=== PATIENT | male | born 1965 | race Caucasian/White ===

== ENCOUNTER 2017-03-18 14:29 | Emergency (ER) | payer OTHER ==
[~2017-03-18] VITALS: Ht 177.8 cm; Wt 70.5 kg
[2017-03-18 14:41] VITALS: BP 102/55; PULSE 107; RESP 25; O2SAT 94
[2017-03-18 15:10] LABS: BASOPHILS % (AUTO) 1.2 % (0-3); EOSINOPHILS % (AUTO) 2.2 % (0-5); MONOCYTES % (AUTO) 8.2 % (4-12); Mean Corpuscular Hemoglobin 33.3 pg (27.0-35.0); NEUTROPHILS % (AUTO) 73.7 % (40-74); Platelet Count 328 bil/L (150-400)
[2017-03-18 15:18] VITALS: BP 96/44; PULSE 95; RESP 25; O2SAT 94
--- NOTE | 2017-03-18 15:36 | ED.REPORT ---
HPI-General Illness Date of Service Mar 18, 2017 ED Provider: Rodri Toney MD Patient is a 52 year old male with a hx of Epilepsy, COPD, and EtOH abuse who presents to the ED via EMS s/p having 2 EMS witnessed tonic clonic seizures. [place] [facility] [place] and [place] and discharged with medications sent to [place]. He was unable to get a ride to [place] to get his medication. He was given 5mg of Versed. Patient also has a small laceration on his L arm onset earlier today. He is amnestic to his arrival at the hospital and does not know why he is here. His only complaint is headache. He denies neck pain, chest pain, SOB, abdominal pain, nausea, vomiting, fever, or any other symptoms. He is supposed to take 25 mg of Keppra a day but has not taken it since this morning [place] [facility] [place] He reports he had a CT Head scan this morning [place] [facility] [place] He denies drinking since his release [place] [facility] [place]. Nursing Notes Stated Complaint: INTOXICATION, SEIZURE, ARM STABBING Chief Complaint: Seizure Nursing Notes Reviewed: Yes Allergies: Coded Allergies: No Known Allergies (Unverified , 03/18/17) General Time Seen by MD: 15:22 Chief Complaint Seizure Hx Obtained From: Patient Arrived By: Ambulance Sudden in Onset?: Yes Onset Occurred: Just prior to arrival Severity: Current: No pain currently Severity: Maximum: No pain Pertinent Negative: Pt denies other symptoms Context Related History: Reports COPD, Reports Seizure disorder Recent Healthcare: Recent doctor visit, Recent testing, Prior workup Similar Sx Previous: Yes Past Medical History Past Medical History EtOH abuse PTSD Reports: COPD Reports: Seizure disorder Past Surgical History Facial surgery Smoking History Unknown if Ever Smoker Social History EtOH abuse - amount unspecified. Other Social History: Homeless Ambulatory Status Independent Review of Systems +laceration on L forearm Full Review of Systems Constitutional: Denies: Fever Respiratory: Denies: Shortness of breath Cardiovascular: Denies: Chest pain GI: Denies: Abdominal pain, Nausea, Vomiting Musculoskeletal: Denies: Neck pain Neurologic: Reports: Confusion, Headache, Seizure Complete sys rev & neg: except as marked. Physical Exam Nursing note and vitals reviewed. Constitutional: Well-developed, well-nourished. Not diaphoretic. Head: Normocephalic and atraumatic. Mouth/Throat: Oropharynx is clear and moist. No oropharyngeal exudate. Eyes: EOM are normal. Pupils are equal, round, and reactive to light. Neck: Supple, no tracheal deviation. No C-spine tenderness. Back: No L or T-spine tenderness Cardiovascular: Tachycardic. Equal and intact distal pulses throughout. Pulmonary/Chest: Effort normal and breath sounds normal. No respiratory distress. Abdominal: Soft. No distension. There is no tenderness, rebound, or guarding. Bowel sounds present. Musculoskeletal: Range of motion grossly intact, moving all extremities. No edema or tenderness appreciated. Neurological: AOx3. Grossly nonfocal exam. Strength and sensation intact and equal to bilateral upper and lower extremities. Skin: Warm and dry, no rashes or pallor appreciated. 5 cm superficial laceration to the L forearm, well approximated. Psychiatric: Appropriate mood and affect. Behavior appears normal. Vital Signs Vital Signs Date Time Temp Pulse Resp B/P Pulse Ox O2 Delivery O2 Flow Rate FiO2 03/18/17 15:18 95 25 96/44 94 Nasal Cannula 2 03/18/17 14:41 36.3 107 25 102/55 94 Nasal Cannula 2 Interpretation & Diagnostics Lab Results Interpretation Result Diagram: 03/18/17 1503 03/18/17 1535 Test 03/18/17 15:03 03/18/17 15:35 White Blood Count 13.8th/mm3 (3.8-10.1) Red Blood Count 4.42mil/mm3 (4.40-5.80) Hemoglobin 14.7g/dL (13.8-17.2) Hematocrit 42.0% (41.0-50.0) Mean Corpuscular Volume 95.0fL (81-100) Mean Corpuscular Hemoglobin 33.3pg (27.0-35.0) Mean Corpuscular Hemoglobin Concent 35.0% (32.0-37.0) Red Cell Distribution Width 13.6% (12.3-15.4) Platelet Count 328bil/L (150-400) Neutrophils (%) (Auto) 73.7% (40-74) Lymphocytes (%) (Auto) 14.5% (14-46) Monocytes (%) (Auto) 8.2% (4-12) Eosinophils (%) (Auto) 2.2% (0-5) Basophils (%) (Auto) 1.2% (0-3) Sodium Level 142mEq/L (134-144) Potassium Level 4.0mEq/L (3.5-5.2) Chloride Level 106mEq/L (97-108) Carbon Dioxide Level 21mmol/L (18-29) Blood Urea Nitrogen 9mg/dL (6-24) Creatinine 0.66mg/dL (0.76-1.27) Estimat Glomerular Filtration Rate 135mL/min (>59) Glucose Level 106mg/dL (60-99) Lactic Acid Level 1.5mmol/L (0.4-2.0) Calcium Level 8.1mg/dL (8.5-10.1) Magnesium Level 1.9mg/dL (1.6-2.6) Total Bilirubin 0.3mg/dL (0.0-1.2) Aspartate Amino Transf (AST/SGOT) 30U/L (0-50) Alanine Aminotransferase (ALT/SGPT) 23U/L (0-44) Alkaline Phosphatase 74U/L (25-150) Total Protein 6.3g/dL (6.4-8.4) Albumin 3.6g/dL (3.4-5.0) Hold [place] Top Tube Received (Received) Alcohols 264mg/dL (0-10) CT Head Interpretation IMPRESSION: No acute intracranial abnormalities. Dictated by: Efrain Caputo M.D. on 03/18/2017 at 16:44 Approved by: Efrain Caputo M.D. on 03/18/2017 at 16:48 Study: Head CT no contrast Interpretation / Wet Read by: Interpret - Radiologist Re-Eval/Medical Decision Med Decision/Clinical Course wbc 13.8 creatinine 0.66 Calcium 8.1 Total protein 6.3 alc 264 Time of Eval: 17:22 Re-Evaluation/Progress Note: Patient was walking out the door with clothes on and said he wanted to leave. He was ambulatory with steady gait. Neurological exam nL. He says he is feeling at his baseline. Discussed risks of leaving AMA including , further seizure, and aspiration. Patient clearly understood and wanted to leave. Encouraged patient to return if he changes his mind. Counseled Regarding: Diagnosis, Lab results, Need for follow-up, When/why to return to ED Discharge & Departure Primary Impression: Seizure Additional Impression: Alcohol abuse Disposition: AGAINST MEDICAL ADVICE (Eloped ) Discharge Condition All VS Reviewed: Yes Condition: Stable Scribe Attestation Portions of this note were transcribed by Shayna Colon. I, Dr. Toney personally performed the history, physical exam and medical decision-making; I reviewed and confirmed the accuracy of the information in the transcribed note. Signed by: Shayna Colon 03/18/17, 1726 Rodri Toney MD Mar 18, 2017 15:36 SHAYNA COLON Mar 18, 2017 16:16
[2017-03-18 16:08] LABS: Magnesium 1.9 mg/dL (1.6-2.6)
[2017-03-18] MEDS ORDERED: 0.9% Sodium Chloride 1,000 ML IV ONE (16:15)
[2017-03-18] MEDS ORDERED: TdaP Vaccine 0.5 mL Inj IM ONE (16:20)
--- NOTE | 2017-03-18 16:50 | DRSVH ---
PROCEDURE: CT BRAIN WITHOUT CONTRAST ([id number]) INDICATIONS: 52 year-old female with seizures and altered mental status. TECHNIQUE: Noncontrast 4.5 mm thick angled axial sections acquired from the foramen magnum to the vertex, with c oronal reformats. COMPARISON: None. FINDINGS: Image quality: Excellent. CSF spaces: Basal cisterns are patent. No extra-axial fluid collections. Ventricles are normal in size and shape. Brain: No midline shift. No intracranial masses or hemorrhage. Betancourt-white matter interface is norm al. Skull and face: Calvarium and visualized facial bones are intact, without suspicious lesions. Sinuses: Visualized sinuses and mastoids are clear. IMPRESSION: No acute intracranial abnormalities. Dictated by: Efrain Caputo M.D. on 03/18/2017 at 16:44 Approved by: Efrain Caputo M.D. on 03/18/2017 at 16:48
[2017-03-19] MEDS ORDERED: LEVE500T3 PO (01:59)
== END 2017-03-18 17:29 | disposition left against medical advice (07) ==
LOC: EDBD 14:29 → SED 14:29
DX: G40.909 Epilepsy, unspecified, not intractable, without status epilepticus (principal); F10.10 Alcohol abuse, uncomplicated; J44.9 Chronic obstructive pulmonary disease, unspecified; Z59.0 Homelessness; Z53.29 Procedure and treatment not carried out because of patient's decision for other reasons
CPT/HCPCS: 36415; 70450; 80053; 80299; 83605; 83735; 85025; 96360; 96361; 99285; G0480; J7030

== ENCOUNTER 2017-03-19 00:47 | Emergency (ER) | payer OTHER ==
[~2017-03-19] VITALS: Ht 170.2 cm; Wt 61.4 kg
[2017-03-19 00:49] VITALS: BP 135/89; PULSE 116; RESP 24; O2SAT 95
--- NOTE | 2017-03-19 01:42 | ED.REPORT ---
HPI-General Illness Date of Service Mar 19, 2017 ED Provider: Stephane Spencer MD A 52 year old male with a history of COPD, seizure disorder and alcohol abuse is brought to the ED with a medication request. The pt is requesting Keppra, stating that he has not had any in four days. He has been seen twice today at [facility] for alcohol intoxication and seizures, but denies current seizure activity. He last drank earlier today. Nursing Notes Stated Complaint: ETOH Chief Complaint: Substance Abuse Nursing Notes Reviewed: Yes Allergies: Coded Allergies: No Known Allergies (Unverified , 03/19/17) Scheduled Levetiracetam (Levetiracetam) 500 Mg Tablet 1,000 MG PO BID General Time Seen by MD: 01:42 Chief Complaint Medication refill Hx Obtained From: Patient, EMS Arrived By: Ambulance Sudden in Onset?: No Symptom Duration: Since onset Recent Healthcare: No recent hospitalization, Recent doctor visit Similar Sx Previous: No Past Medical History Past Medical History EtOH abuse PTSD Reports: COPD Reports: Seizure disorder Past Surgical History Facial surgery Smoking History Unknown if Ever Smoker Social History EtOH abuse - amount unspecified. Other Social History: Homeless Ambulatory Status Independent Review of Systems Unable to Obtain ROS Intoxicated Physical Exam Vital Signs Vital Signs Date Time Temp Pulse Resp B/P Pulse Ox O2 Delivery O2 Flow Rate FiO2 03/19/17 02:24 104 18 128/71 95 Room Air 03/19/17 00:49 36.4 116 24 135/89 95 Room Air Initial VS: Reviewed General/Constitutional: Awake, Alert no obvious seizure activity disheveled Head / Eyes: Atraumatic, Normocephalic, PERRL, EOMI ENT: Atraumatic, Airway patent, Mucous membranes moist Neck: Atraumatic, Supple, Full range of motion Respiratory / Chest: Atraumatic, Breath sounds NL, Breath sounds = bilat, No respiratory distress Cardiovascular: Heart rate NL, Regular rhythm, Heart sounds NL Abdomen: Atraumatic, Soft, Non-tender Back: Atraumatic, Full range of motion Upper Extremities Upper Extremity / MS: Full range of motion, Neurologic intact, Vascular intact linear scrape on left flexor forearm, surrounded by mild cellulitis Lower Extremity / Pelvis / MS: Atraumatic, Full range of motion Skin: Color NL, No rash, Warm, Dry Neurologic: Oriented X3, Speech NL, No motor deficits, No sensory deficits Psychiatric: Affect NL, Mood NL Interpretation & Diagnostics Lab Results Interpretation Test 03/19/17 01:33 Hold Urine Received (Received) Re-Eval/Medical Decision Med Decision/Clinical Course 52-year-old alcoholic with a primary seizure disorder presents out of his current Keppra. He was renewed as he describes, at 1000 mg a.m. and p.m., with a 500 mg dose in between. He was given 2000 as a loading dose tonight. He has not incidental scrape and cellulitis on his left forearm which was cleansed and dressed in he was given Keflex for his cellulitis. Discharged in stable condition. Source of Hx: Old records Time of Eval: 01:42 Patient Status: Condition improved Re-Evaluation/Progress Note: Pt informed of the diagnosis and plan for discharge during the initial interview. The pt understands and agrees with the plan. All questions are addressed at this time. Counseled Regarding: Diagnosis, Need for follow-up, When/why to return to ED Discharge & Departure Primary Impression: Seizure disorder Additional Impressions: Alcohol abuse Cellulitis Site of cellulitis: extremity Site of cellulitis of extremity: upper extremity Laterality: left Qualified Code: L03.114 - Cellulitis of left upper limb Disposition: Home Discharge Condition All VS Reviewed: Yes Condition: Stable Patient Instructions: Epilepsy (ED), Levetiracetam (By mouth) Additional Instructions: Resume your Keppra at prescribed doses. 1000 mg morning and night, 500 mg at mid day. Keflex three times daily for ten days Bacitracin dressing to the wound on your arm three times daily Follow-up with your doctor in the office. You may follow up at [facility] if local care as needed. Referrals: [facility] Guillermo Attestation Portions of this note were transcribed by Bob Hankins. I, Dr. Spencer personally performed the history, physical exam and medical decision-making; I reviewed and confirmed the accuracy of the information in the transcribed note. Signed by: Guillermo Emanuel, 03/19/2017 and 0206. copies to: [facility] tSephane Spencer MD Mar 19, 2017 01:42 BOB HANKINS Mar 19, 2017 01:59
[2017-03-19] MEDS ORDERED: levETIRAcetam 500 mg Tablet PO ONE (01:55)
[2017-03-19] MEDS ORDERED: LEVE500T3 PO (01:59)
[2017-03-19 02:24] VITALS: BP 128/71; PULSE 104; RESP 18; O2SAT 95
[2017-03-19] MEDS ORDERED: _Cephalexin 500 mg Capsule PO SCH (08:30)
== END 2017-03-19 02:25 | disposition home or self-care (01) ==
LOC: SED 00:47
DX: R56.9 Unspecified convulsions (principal); F10.10 Alcohol abuse, uncomplicated; L03.114 Cellulitis of left upper limb; J44.9 Chronic obstructive pulmonary disease, unspecified; F43.10 Post-traumatic stress disorder, unspecified; Z59.0 Homelessness